=== PATIENT | male | born 1970 | race Caucasian/White ===

== ENCOUNTER 2018-12-28 10:16 | Emergency (ER) | payer OTHER ==
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
[2018-12-28] MEDS ORDERED: IOPAMIDOL (ISOVUE-300) 100 ML BTL ONE (11:15)
[2018-12-28] MEDS ORDERED: ONDANSETRON 4 MG/2 ML VIAL IVP PRN (12:18)
[2018-12-28] MEDS ORDERED: ACETAMINOPHEN 500 MG TAB PO ONE (12:19)
[2018-12-28 13:02] VITALS: BP 125/76
== END 2018-12-28 13:11 | disposition home or self-care (01) ==
DX: S06.0X9A Concussion with loss of consciousness of unspecified duration, initial encounter (principal); M25.511 Pain in right shoulder; M79.642 Pain in left hand; V86.06XA Driver of dirt bike or motor/cross bike injured in traffic accident, initial encounter; Y92.410 Unspecified street and highway as the place of occurrence of the external cause
CPT/HCPCS: 82435-PO; 82565-PO; 82947-PO; 84132-PO; 84295-PO; 84520-PO; 85014-ER; A4565; Q9967